=== PATIENT | male | born 1985 | race Caucasian/White ===

== ENCOUNTER 2017-07-06 21:10 | Emergency (ER) | payer OTHER ==
[~2017-07-06] VITALS: Ht 195.6 cm; Wt 85.3 kg
[2017-07-06 23:16] LABS: UA SPECIFIC GRAVITY 1.025 (1.005-1.035); microscopic required? YES; urine erythrocyte 2+ (NEGATIVE)
[2017-07-06 23:34] VITALS: BP 113/75
== END 2017-07-06 23:34 | disposition home or self-care (01) ==
LOC: ED 21:10
PROVIDERS: Emergency Medicine
DX: J06.9 Acute upper respiratory infection, unspecified (principal); F17.210 Nicotine dependence, cigarettes, uncomplicated; R30.0 Dysuria
CPT/HCPCS: 87491; 87591; J0696

== ENCOUNTER 2020-05-07 22:42 | Emergency (ER) | payer OTHER ==
[~2020-05-07] VITALS: Ht 193 cm; Wt 86.2 kg
[2020-05-08 00:20] VITALS: Ht 193 cm; Wt 86.2 kg
[2020-05-08 01:19] VITALS: BP 111/74
== END 2020-05-08 02:39 | disposition left against medical advice (07) ==
LOC: ED 22:42
DX: F11.20 Opioid dependence, uncomplicated (principal)
CPT/HCPCS: 82962; G0480